=== PATIENT | male | born 1995 | race Caucasian/White ===

== ENCOUNTER 2019-06-24 14:26 | Emergency (ER) | payer MEDICAID, OTHER ==
[~2019-06-24] VITALS: Ht 175.3 cm; Wt 101.3 kg
[~2019-06-24 14:26] MED LIST: HYDR-4011 PO; NAPR-985 PO
[2019-06-24 14:49] VITALS: BP 150/93; PULSE 96; RESP 20; Ht 175.3 cm; Wt 101.3 kg
[2019-06-24] MEDS ORDERED: ONDANSETRON (ODT) 4 MG TAB ODT STA (15:15)
[2019-06-24] MEDS ORDERED: HYDROCODONE/APAP (5/325) TAB PO ONE (15:30)
== END 2019-06-24 16:34 | disposition home or self-care (01) ==
LOC: E/R 14:26 → FTE 16:34
DX: S62.314A Displaced fracture of base of fourth metacarpal bone, right hand, initial encounter for closed fracture (principal); S62.141A Displaced fracture of body of hamate [unciform] bone, right wrist, initial encounter for closed fracture; W22.8XXA Striking against or struck by other objects, initial encounter; Y92.9 Unspecified place or not applicable
CPT/HCPCS: 29125; 73110; 73130; Z7502; Z7610